=== PATIENT | male | born 1960 | race Caucasian/White ===

== ENCOUNTER 2016-11-25 09:59 | Inpatient (IN) | payer MEDICARE, OTHER ==
[~2016-11-25] VITALS: Ht 175.3 cm; Wt 70.6 kg
[2016-11-25 10:15] VITALS: BP 133/80; PULSE 97; RESP 16; TEMP 98.7; O2SAT 99
[2016-11-25 10:16] VITALS: BP 130/78; PULSE 97; RESP 16; TEMP 98.7; O2SAT 99
--- NOTE | 2016-11-25 10:27 | PD ---
HPI Chief Complaint: Psychiatric Symptoms Time Seen by Provider: 10:16 Travel History International Travel<30 days: No (unknown) Contact w/Intl Traveler<30days: No (unknown) Traveled to known affect area: No (unknown) History of Present Illness HPI This is a middle aged male with unknown medical history, is brought in under a Hebert act. The patient was apparently found on the side of the road and was not cooperative with please. Please were concerned that he had psychiatric issues. He is placed under a Hebert act. The patient was not cooperative with the police or paramedics. All he will tell me is that he's had old musculoskeletal fractures. He would not elaborate on whether he smoked, took drugs, drank alcohol. He was refusing to get in a gown. He was threatening to the police and to the staff when he arrived. PFSH Past Medical History ?: Unknown Social History Tobacco Use: No (unknown) Allergies-Medications (Allergen,Severity, Reaction): Coded Allergies: Darvocet-N 100 (Verified Allergy, Unknown, 11/25/16) Reported Meds & Prescriptions Reported Meds & Active Scripts Active Active Prescriptions or Reported Medications Unobtainable Review of Systems ROS Limitations: Uncooperative, Refused Except as stated in HPI: all other systems reviewed are Neg Physical Exam Narrative GENERAL: Well developed well-nourished male in no acute respiratory distress. SKIN: Focused skin assessment warm/dry. HEAD: Atraumatic. Normocephalic. EYES: Pupils equal and round. No scleral icterus. No injection or drainage. ENT: No nasal bleeding or discharge. Mucous membranes pink and moist. NECK: Trachea midline. Supple. CARDIOVASCULAR: Regular rate and rhythm. No murmur appreciated. RESPIRATORY: No accessory muscle use. Clear to auscultation. Breath sounds equal bilaterally. GASTROINTESTINAL: Abdomen soft, non-tender, nondistended. No pulsatile masses. MUSCULOSKELETAL: No obvious deformities. No clubbing. No cyanosis. No edema. NEUROLOGICAL: Awake and uncooperative. No obvious cranial nerve deficits. Motor grossly within normal limits. Normal speech but minimal secondary to his uncooperative state. Data Data Last Documented VS Vital Signs Date Time Temp Pulse Resp B/P Pulse Ox O2 Delivery O2 Flow Rate FiO2 11/25/16 10:16 98.7 97 16 130/78 99 11/25/16 10:15 Room Air Orders Complete Blood Count With Diff (11/25/16 10:16) Comprehensive Metabolic Panel (11/25/16 10:16) Psych Screen (11/25/16 10:16) Restraints Violent (11/25/16 10:16) Alcohol (Ethanol) (11/25/16 10:16) Permethrin 5% Cream (Elimite 5% Cream) (11/25/16 12:00) Admit To Inpatient Psych (11/25/16 ) Vital Signs (Adult) MALCOM.Q12H.E (11/25/16 14:40) Activity Oob Ad Fide (11/25/16 14:40) Lorazepam (Ativan) (11/25/16 14:45) Lorazepam Inj (Ativan Inj) (11/25/16 14:45) Lorazepam (Ativan) (11/25/16 14:45) Lorazepam Inj (Ativan Inj) (11/25/16 14:45) Acetaminophen (Tylenol) (11/25/16 14:45) Magnesium Hydroxide Liq (Milk Of Magnesi (11/25/16 14:45) Al-Mag Hy-Si 40-40-4 Mg/Ml Liq (Mag-Al P (11/25/16 14:45) Nicotine 21 Mg Patch.24 Hr (Habitrol 21 (11/25/16 14:45) Admit Order (Ed Use Only) (11/25/16 ) Labs Laboratory Tests Test 11/25/16 10:30 Sodium Level 143 MEQ/L Potassium Level 4.1 MEQ/L Chloride Level 107 MEQ/L Carbon Dioxide Level 27.4 MEQ/L Anion Gap 9 MEQ/L Blood Urea Nitrogen 21 MG/DL Creatinine 1.02 MG/DL Estimat Glomerular Filtration 63 ML/MIN Rate Random Glucose 141 MG/DL Calcium Level 9.5 MG/DL Total Bilirubin 1.0 MG/DL Aspartate Amino Transf 19 U/L (AST/SGOT) Alanine Aminotransferase 28 U/L (ALT/SGPT) Alkaline Phosphatase 69 U/L Total Protein 7.6 GM/DL Albumin 4.2 GM/DL Ethyl Alcohol Level LESS THAN 3 MG/DL White Blood Count 6.8 TH/MM3 Red Blood Count 4.22 MIL/MM3 Hemoglobin 13.6 GM/DL Hematocrit 40.4 % Mean Corpuscular Volume 95.8 FL Mean Corpuscular Hemoglobin 32.2 PG Mean Corpuscular Hemoglobin 33.6 % Concent Red Cell Distribution Width 12.8 % Platelet Count 193 TH/MM3 Mean Platelet Volume 8.9 FL Neutrophils (%) (Auto) 73.6 % Lymphocytes (%) (Auto) 16.6 % Monocytes (%) (Auto) 8.2 % Eosinophils (%) (Auto) 1.1 % Basophils (%) (Auto) 0.5 % Neutrophils # (Auto) 5.0 TH/MM3 Lymphocytes # (Auto) 1.1 TH/MM3 Monocytes # (Auto) 0.6 TH/MM3 Eosinophils # (Auto) 0.1 TH/MM3 Basophils # (Auto) 0.0 TH/MM3 CBC Comment DIFF FINAL Differential Comment MDM Medical Decision Making Medical Screen Exam Complete: Yes Emergency Medical Condition: Yes Differential Diagnosis Acute psychosis versus substance induced mood disorder versus uncooperative Narrative Course This is a middle-age man who is brought in under a Hebert act. The patient was initially refusing to discuss any of his history with me when he arrived. He is now somewhat more verbal however has tangential thoughts. He keeps remarking about [place] and [place] architecture. The patient would tell me his first name is Ion. When I asked if he would tell me his last name, he refused. His gown was coming down off his right shoulder and when I went to try to assist put it back up, he stated he would bert me. He is still very confrontational. He'll be medically cleared for psychiatric admission. He does have questionable scabies lesions to his feet. I have ordered permetherin cream for it. Diagnosis Primary Impression: Unspecified psychosis Additional Impressions: questionable scabies to the feet medically clear Scripts Unable to Obtain Active Prescriptions or Reported Meds Angel Kuhn MD Nov 25, 2016 10:27
[2016-11-25 10:50] LABS: BASOPHIL % 0.5 % (0.0-2.0); EOSINOPHIL # 0.1 TH/MM3 (0-0.4); EOSINOPHIL % 1.1 % (0.0-4.0); HEMATOCRIT 40.4 % (39.0-51.0); HEMO FLAGS DIFF FINAL; LYMPH % 16.6 % (9.0-44.0); LYMPHOCYTE # 1.1 TH/MM3 (1.0-4.8); MEAN CELL VOLUME 95.8 FL (80.0-100.0); MEAN CORPUSCULAR HEMOGLOBIN 32.2 PG (27.0-34.0); MEAN CORPUSCULAR HGB CONC 33.6 % (32.0-36.0); MONO % 8.2 % (0.0-8.0); NEUT % 73.6 % (16.0-70.0); PLATELET COUNT 193 TH/MM3 (150-450); RED BLOOD COUNT 4.22 MIL/MM3 (4.50-5.90); RED CELL DISTRIBUTION WIDTH 12.8 % (11.6-17.2); WHITE BLOOD COUNT 6.8 TH/MM3 (4.0-11.0)
[2016-11-25 11:08] LABS: ANION GAP 9 MEQ/L (5-15); AST (GOT) 19 U/L (15-37); BICARBONATE 27.4 MEQ/L (21.0-32.0); BLOOD UREA NITROGEN 21 MG/DL (7-18); CHLORIDE 107 MEQ/L (98-107); GLOMERULAR FILTRATION RATE 63 ML/MIN (>89); POTASSIUM 4.1 MEQ/L (3.5-5.1); SODIUM (NA) 143 MEQ/L (136-145)
[2016-11-25 11:10] LABS: ALKALINE PHOSPHATASE 69 U/L (45-117); ALT (GPT) 28 U/L (12-78)
[2016-11-25] MEDS ORDERED: PERMETHRIN 5% CREAM 60 GM TOPICAL ONE (12:00)
[2016-11-25] MEDS ORDERED: LORazepam 0.5 MG TAB PO PRN (14:45)
[2016-11-25] MEDS ORDERED: LORazepam 2 MG/ML VIAL IM PRN ×2 (14:45)
[2016-11-25] MEDS ORDERED: MAGNESIUM HYDROXIDE SUSP 30 ML CUP PO PRN (14:45)
[2016-11-25] MEDS ORDERED: ALUMINUM/MAGNESIUM/SIMETH 30 ML CUP PO PRN (14:45)
[2016-11-25] MEDS: NICOTINE 21 MG/24 HR PATCH T-DERMAL SCH (14:45)
[2016-11-25 15:00] VITALS: BP 126/74; PULSE 76; RESP 18; O2SAT 99
[2016-11-25] MEDS ORDERED: OLANZapine IM 10 MG VIAL IM ONE ×2 (16:36→17:00)
[2016-11-25] MEDS: LORazepam 1 MG TAB PO PRN (16:47)
[2016-11-25] MEDS ORDERED: ATROPINE SULFATE 1 MG/ML VIAL ONE (17:27)
[2016-11-25 18:16] VITALS: BP 104/54; PULSE 69; RESP 18; TEMP 98.6; O2SAT 92
[2016-11-25] MEDS: REMOVE OLD NICODERM (NICOTINE) PATCH T-DERMAL SCH (21:00)
[2016-11-26] VITALS: BP 92/61; PULSE 62; RESP 16; TEMP 97.4; O2SAT 98
[2016-11-26 06:04] VITALS: BP 88/53; PULSE 72; RESP 18; O2SAT 100
[2016-11-26] MEDS: NICOTINE 21 MG/24 HR PATCH T-DERMAL SCH (09:00)
--- NOTE | 2016-11-26 12:54 | HHI.HP ---
Provisional Diagnosis Admission Date Nov 25, 2016 at 14:43 Burna I. 1. Schizoaffective disorder, other type 2. History of alcohol use disorder Burna II. Deferred Burna V. GAF is 30 presently Certification of Person's Competence To Provide Express and Informed Consent I have personally examined Rohith Page , a person being served at [facility] on, Nov 26, 2016 12:54. Express and informed consent means consent voluntarily given in writing, by a competent person, after sufficient explanation and disclosure of the subject matter involved to enable the person to make a knowing and willful decision without any element of force, fraud, deceit, duress, or other form of constraint or coercion. This person is 18 years of age or older, is not now known to be incompetent to consent to treatment with a guardian advocate, and does not have a health care surrogate or proxy currently making medical treatment decisions. I have found this person to be one of the following: [x] Competent to provide express and informed consent, as defined above, for voluntary admission to this facility and is competent to provide express and informed consent for treatment. He/she has the consistent capacity to make well reasoned, willful, and knowing decisions concerning his or her medical or mental health treatment. The person fully and consistently understands the purpose of the admission for examination/placement and is fully capable of personally exercising all rights assured under [place] Incompetent to provide express and informed consent to voluntary admission, and this is incompetent to provide express and informed consent to treatment. The person must be transferred to involuntary status and a petition for a guardian advocate filed with the Circuit Court. [] Refusing to provide express and informed consent to voluntary admission but is competent to provide express and informed consent for treatment. The person must be discharged or transferred to involuntary status. Form shall be completed within 24 hours of a person's arrival at the receiving facility and filed in the clinical record of each person: 1. Admitted on a voluntary basis 2. Permitted to provide express and informed consent to his/her own treatment 3. Allowed to transfer from involuntary to voluntary status 4. Prior to permitting a person to consent to his or her own treatment after having been previously found incompetent to consent to treatment. History of Present Illness Capacity: Has Capacity HPI Patient is an [id number] male presenting as a Rohith Tompkins under a Hebert Act, gives his name as Ion Jameson 62. Reviewing the notes, it appears that he was quite agitated on initial presentation and was medicated with Zyprexa 10 mg IM in the ED. Reviewing the electronic medical record for Mr. Jameson, it appears the patient was admitted about a year ago under Dr. Russell for a short stay for what turned out to be an alcohol-induced disorder at that time, although Dr. Russell's last note does give a diagnosis of schizoaffective disorder. I have placed a call over to [facility] and spoken with medical records there. Patient was apparently treated at the end of October of this year at [facility] and the diagnosis at that time was schizoaffective disorder. Medical records is faxing me the full report for review. Patient seen and examined with counselor and nurse. Patient seems much more lucid today than he apparently was yesterday. He complains of pain in his jaw, neck and back related to being detained by the police. 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 He is not a terribly forthcoming historian. He does report "everyday things make me anxious." He denies AVH. When asked if he feels like people are working against him, he replies, "I'm sure they do." No other gia delusional material. Denies SI/HI at this time. Affect somewhat restricted and dysphoric. No hypomanic/manic symptoms noted. Demanding and irritable per RN. Remainder of the psychiatric ROS is negative. Past psychiatric history: Patient denies a history of psychiatric diagnosis although he does note that he has been treated at [facility] in the past. He reports that his most recent psychiatric admission was here at [facility]. He denies any history of suicide attempts. Family history: Patient replies that he "probably" has a family history of mental illness. Chemical dependency history: Patient reports that he has significantly curtailed his alcohol consumption although he declines to quantify exactly how much or overwhelmed. He has cut back. He denies any other substance use. His alcohol level was undetectable on presentation here and he declined to provide a urine sample for urine toxicology. Social history: The patient reports that he is trying to get back to [facility] where he plans to stay with a friend named Zhen. He is single with no children. He is college educated reportedly. He does not work and collects disability but says that was his payee and has been holding his checks. Denies any history of violent crime. Denies any active legal issues. Denies any history. Denies any access to guns or firearms. Review of Systems ROS Limitations: Poor Historian Except as stated in HPI: all other systems reviewed are Neg Past Psych History Psychological trauma history none reported Violence risk - others (6 mos) Indeterminate but suspect lower imminent risk. Denies HI. Violence risk - self (6 mos) Lower imminent risk. Denies SI. Substance Abuse History Drugs/Alcohol past 12 months See above Past Family Social History Coded Allergies: Darvocet-N 100 (Verified Allergy, Unknown, 11/25/16) Past Medical History See electronic medical record Unable to Obtain Active Prescriptions or Reported Meds Current Medications Medications (Trade) Dose Ordered Sig/Luke Route Start Time Stop Time Status Last Admin (Ativan) 1 mg Q6H PRN PO 11/25/16 14:45 (Ativan Inj) 1 mg Q6H PRN IM 11/25/16 14:45 11/25/16 16:58 (Tylenol) 650 mg Q4H PRN PO 11/25/16 14:45 (Milk Of Magnesia Liq) 30 ml DAILY PRN PO 11/25/16 14:45 (Mag-Al Plus Susp Liq) 30 ml Q6H PRN PO 11/25/16 14:45 (Habitrol 21 Mg Patch.24 Hr) 1 patch DAILY T-DERMAL 11/25/16 14:45 Miscellaneous Information 1 HS T-DERMAL 11/25/16 21:00 Patient's Strengths (min. 2) In a monitored setting. Verbally fluent. Physical Exam Physical exam completed by ED provider. On my examination today, patient appears to be in no acute physical distress. No abnormal motor movements noted. No signs of withdrawal noted. Labs and vital signs reviewed: Vital Signs Vital Signs Date Time Temp Pulse Resp B/P Pulse Ox O2 Delivery O2 Flow Rate FiO2 11/26/16 06:04 72 18 88/53 100 11/26/16 00:00 97.4 11/25/16 15:00 Room Air Lab Results Item Value Date Time White Blood Count 6.8 TH/MM3 11/25/16 1030 Hemoglobin 13.6 GM/DL 11/25/16 1030 Platelet Count 193 TH/MM3 11/25/16 1030 Sodium Level 143 MEQ/L 11/25/16 1030 Potassium Level 4.1 MEQ/L 11/25/16 1030 Chloride Level 107 MEQ/L 11/25/16 1030 Carbon Dioxide Level 27.4 MEQ/L 11/25/16 1030 Blood Urea Nitrogen 21 MG/DL H 11/25/16 1030 Creatinine 1.02 MG/DL 11/25/16 1030 Aspartate Amino Transf (AST/SGOT) 19 U/L 11/25/16 1030 Alanine Aminotransferase (ALT/SGPT) 28 U/L 11/25/16 1030 Alkaline Phosphatase 69 U/L 11/25/16 1030 Ethyl Alcohol Level LESS THAN 3 MG/DL 11/25/16 1030 Mental Status Examination Patient is in hospital gown. He is fairly disheveled. He is awake and alert and oriented 3. No evidence of delirium. No abnormal motor movements noted. Speech is within normal limits for rate, tone and volume if a little bit gruff. Language and fund of knowledge seem average. Focus and concentration intact. Memory grossly intact on clinical exam. Mood and affect are somewhat restricted and dysphoric. Thought process linear. No loosening of associations. Possibly some paranoia but no other delusional material. No audiovisual hallucinations. Denies suicidal or homicidal ideation. Insight and judgment are unclear. Assessment & Plan Problem List: (1) Schizoaffective disorder ICD Code: F25.9 Assessment & Plan This is an older middle-aged male giving his name as Ion Jameson who presented under a Hebert act as a Rohith Tompkins. Patient apparently has a history of schizoaffective disorder and is presently mildly paranoid. Patient declined to provide UTox in ED, and it is possible that he was intoxicated by a substance prior to arrival. He does endorse a history of EtOH, but his alcohol level was undetectable on presentation here. There are no stigmata of withdrawal at this time, nor is he presently delirious. I will plan to admit patient psychiatrically for observation. Admit inpatient. Voluntary status. Check BMP, lipid panel, HgbA1c in morning. Consult to hospitalist for physical complaints. Abilify 10mg daily for schizoaffective d/o. CIWA with Ativan. Thiamine/folate. Seizure/fall prec. Ativan as needed for anxiety, Cogentin as needed for EPS, Benadryl as needed for sleep. Vitals every shift. Counselor to see and obtain collateral. Disposition planning. Estimated length of stay: 3-5 days. Discharge Planning Pending stabilization Request HC Surrog/Guard Advoc?: No Problem Qualifiers (1) Schizoaffective disorder: Qualified Code: F25.8 - Other schizoaffective disorders Ion Chow MD Nov 26, 2016 12:54
[2016-11-26] MEDS ORDERED: PERMETHRIN 1% LOTION 60 ML BTL TOPICAL ONE (13:00)
[2016-11-26] MEDS ORDERED: FLUMAZENIL 0.5 MG/5 ML VIAL IV PUSH PRN (14:00)
[2016-11-26] MEDS ORDERED: BENZTROPINE MESYLATE 1 MG TAB PO PRN (14:00)
[2016-11-26] MEDS ORDERED: LORazepam 2 MG/ML VIAL IM PRN ×4 (14:00)
[2016-11-26] MEDS ORDERED: LORazepam 2 MG TAB PO PRN (14:00)
[2016-11-26] MEDS ORDERED: LORazepam 1 MG TAB PO PRN (14:00)
[2016-11-26] MEDS ORDERED: BENZTROPINE MESYLATE 2 MG/2 ML VIAL IM PRN (14:00)
[2016-11-26] MEDS: LORazepam 1 MG TAB PO PRN (14:16)
[2016-11-26] MEDS ORDERED: PERMETHRIN 5% CREAM 60 GM TOPICAL ONE (15:00)
--- NOTE | 2016-11-26 19:12 | PD.CONS ---
HPI Service [facility] Consult Requested By Psychiatric team Reason for Consult Complains of general back and neck pain reportedly from being detained by [facility] for Hebert act Primary Care Physician Shady Martin MD Diagnoses: History of Present Illness Written by Saima Caldwell, acting as scribe for Dr. Tinsley on 11/26/16 at 19:05. This a patient brought in as a Rohith Tompkins under Hebert act by [facility]. Patient reports 6 days ago as he is being discharged from [facility], "broke his neck," and since that point he has been having neck pain. Patient denies back pain or jaw pain at this time. Patient also complains of burning/itching to left ankle area unable to elaborate on how long this has been present. Of note patient is a unreliable and poor historian. Patient appears to be in no acute distress and denies chest pain nausea vomiting diarrhea constipation fevers or chills Review of Systems ROS Limitations: Poor Historian Except as stated in HPI: all other systems reviewed are Neg Past Family Social History Allergies: Coded Allergies: Darvocet-N 100 (Verified Allergy, Unknown, 11/25/16) Past Medical History Denies prior medical history Past Surgical History Reports he's had some dental work but denies prior surgical history Reported Medications Denies taking medications on a daily basis Active Ordered Medications Current Medications Medications (Trade) Dose Ordered Sig/Luke Route Start Time Stop Time Status Last Admin (Ativan) 1 mg Q6H PRN PO 11/25/16 14:45 11/26/16 14:16 (Ativan Inj) 1 mg Q6H PRN IM 11/25/16 14:45 11/25/16 16:58 (Tylenol) 650 mg Q4H PRN PO 11/25/16 14:45 (Milk Of Magnesia Liq) 30 ml DAILY PRN PO 11/25/16 14:45 (Mag-Al Plus Susp Liq) 30 ml Q6H PRN PO 11/25/16 14:45 (Habitrol 21 Mg Patch.24 Hr) 1 patch DAILY T-DERMAL 11/25/16 14:45 Miscellaneous Information 1 HS T-DERMAL 11/25/16 21:00 (Abilify) 10 mg DAILY PO 11/27/16 09:00 (Romazicon Inj) 0.2 mg Q1M PRN IV PUSH 11/26/16 14:00 (Ativan) 1 mg Q4H PRN PO 11/26/16 14:00 (Ativan Inj) 1 mg Q4H PRN IM 11/26/16 14:00 (Ativan) 2 mg Q2H PRN PO 11/26/16 14:00 (Ativan Inj) 2 mg Q2H PRN IM 11/26/16 14:00 (Ativan Inj) 2 mg Q1H PRN IM 11/26/16 14:00 (Ativan Inj) 2 mg Q15M PRN IM 11/26/16 14:00 (Vitamin B1) 100 mg DAILY PO 11/27/16 09:00 (Folate) 1 mg DAILY PO 11/27/16 09:00 (Cogentin) 1 mg Q12HR PRN PO 11/26/16 14:00 (Cogentin Inj) 1 mg Q12HR PRN IM 11/26/16 14:00 (Benadryl) 50 mg HS PRN PO 11/26/16 14:00 (Motrin) 800 mg Q8H PRN PO 11/26/16 17:15 (Benadryl 2% Cream) 1 applic TID PRN TOPICAL 11/26/16 17:30 Family History Denies family medical history Social History Denies tobacco use EtOH use or illicit drug use Physical Exam Vital Signs Vital Signs Date Time Temp Pulse Resp B/P Pulse Ox O2 Delivery O2 Flow Rate FiO2 11/26/16 06:04 72 18 88/53 100 11/26/16 00:00 97.4 62 16 92/61 98 Physical Exam GENERAL: This is a well-nourished, well-developed patient, in no apparent distress. SKIN: Scattered pustulars left ankle HEAD: Atraumatic. Normocephalic. No temporal or scalp tenderness. EYES: Extraocular motions intact. No scleral icterus. No injection or drainage. NECK: Trachea midline. No JVD or lymphadenopathy. Supple, nontender, no meningeal signs. Full range of motion. CARDIOVASCULAR: Regular rate and rhythm without murmurs, gallops, or rubs. RESPIRATORY: Clear to auscultation. Breath sounds equal bilaterally. No wheezes , rales, or rhonchi. GASTROINTESTINAL: Abdomen soft, non-tender, nondistended. No hepato-splenomegaly , or palpable masses. No guarding. MUSCULOSKELETAL: Extremities without clubbing, cyanosis, or edema. No joint tenderness, effusion, or edema noted. No calf tenderness. Negative Homans sign bilaterally. NEUROLOGICAL: Awake and alert. No focal deficits appreciated. Motor and sensory grossly within normal limits. Five out of 5 muscle strength in all muscle groups. Normal speech. Result Diagram: 11/25/16 1030 11/25/16 1030 Assessment and Plan Assessment and Plan This a patient brought in as a Rohith Tompkins under Hebert act by placed department. Patient reports 6 days ago as he is being discharged from [facility], "broke his neck," and since that point he has been having neck pain. Patient denies back pain or jaw pain at this time. Patient also complains of burning/itching to left ankle area unable to elaborate on how long this has been present. Of note patient is a unreliable and poor historian. Patient appears to be in no acute distress and denies chest pain nausea vomiting diarrhea constipation fevers or chills. Reported neck pain- appears musculoskeletal in nature reproducible with palpation patient has full range of motion is ambulatory has no focal deficits paresthesias or weakness Ibuprofen as needed for pain Pustular rash left ankle appears to be insect bites does not appear consistent with scabies DC permethrin treatment and DC isolation precautions Topical diphenhydramine as needed for itching Psychiatric disorder management per psychiatric team Discussed with patient and nursing staff Patient appears medically stable at this point no further treatment recommendations. The patient's condition changes or further assistance is needed please reconsult This note was transcribed by scribe [Saima Caldwell]. I, Dr. Della Tinsley personally performed the history, physical exam, and medical decision making; and confirmed the accuracy of the information in the transcribed note. Authenticated by Dr. Della Tinsley on 11/26/16 at 1915. Saima Caldwell Nov 26, 2016 19:12 Della Tinsley MD Nov 26, 2016 19:29
[2016-11-26] MEDS: REMOVE OLD NICODERM (NICOTINE) PATCH T-DERMAL SCH (21:00)
[2016-11-26] MEDS: IBUPROFEN 800 MG TAB PO PRN (21:26)
[2016-11-27] MEDS: FOLIC ACID 1 MG TAB PO SCH (09:00)
[2016-11-27] MEDS: THIAMINE HCL 100 MG TAB PO SCH (09:00)
[2016-11-27] MEDS: NICOTINE 21 MG/24 HR PATCH T-DERMAL SCH (09:00)
[2016-11-27] MEDS: ARIPiprazole 5 MG TAB PO SCH (09:25)
[2016-11-27] MEDS: LORazepam 1 MG TAB PO PRN (12:07)
--- NOTE | 2016-11-27 12:09 | HHI.PYPN ---
Subjective Remarks Patient seen and examined with counselor and nurse. Chart reviewed. Case discussed with nursing staff who reports that the patient remains somewhat oppositional and refusing of care. It appears the patient refused laboratories this morning. I endeavored to examine the patient today on the unit, and he walked away from me. Staff tried to call the patient in for interview, but he refused to comply. Patient appears dysphoric and internally preoccupied. No evident side effects from medications. No physical complaints. Review of Systems ROS Limitations: Psychotic, Poor Historian Except as stated in HPI: all other systems reviewed are Neg Objective Alert: Yes [place]: Person (unable to assess) Mood: Other (unable to assess) Affect: Restricted (dysphoric) Memory Intact: Comment (Not assessed) Hallucinations: Other (Appears int stim) Delusions: Yes Delusion Type: Paranoid Suicidal: Ideation (No SI voiced) Homicidal: Ideation (No HI voiced) Insight/Judgment Poor Remarks No motor abnormalities noted. No signs of GABAergic withdrawal. Electively mute. Grooming and hygiene fair. Labs Labs reviewed. Pt refused labs this am. Vitals/IOs Vital Signs Date Time Temp Pulse Resp B/P Pulse Ox O2 Delivery O2 Flow Rate FiO2 11/26/16 06:04 72 18 88/53 100 11/26/16 00:00 97.4 11/25/16 15:00 Room Air Assessment & Plan Problem List: (1) Schizoaffective disorder ICD Code: F25.9 Assessment & Plan Continue Abilify as ordered. Continue to monitor on the high acuity unit. I remain concerned about significant functional impairment as a consequence of decompensated psychosis in this patient. Patient is declining to sign in voluntarily. I will initiate a petition for involuntary psychiatric hospitalization and consult for second opinion. I will request a healthcare surrogate and guardian advocate. Continue other medications and care as ordered. Justification for Cont. Inpt. Impairment in reality construction. Concern for impairment in self-care. High risk for decompensation in a less restrictive environment. Discharge Planning Pending stabilization Request HC Surrog/Guard Advoc?: No Problem Qualifiers (1) Schizoaffective disorder: Qualified Code: F25.8 - Other schizoaffective disorders Ion Chow MD Nov 27, 2016 12:08
[2016-11-27] MEDS: diphenhydrAMINE HCL 2%/ZINC ACETATE 0.1% CREAM 30 APPLIC/30 GM TUBE TOPICAL PRN (14:48)
[2016-11-27] MEDS: IBUPROFEN 800 MG TAB PO PRN (17:05)
[2016-11-27 18:12] VITALS: BP 107/61; PULSE 69; RESP 18; TEMP 98.5; O2SAT 97
[2016-11-27] MEDS: REMOVE OLD NICODERM (NICOTINE) PATCH T-DERMAL SCH (20:33)
[2016-11-28 06:01] VITALS: BP 124/61; PULSE 96; RESP 18; TEMP 98.3
[2016-11-28] MEDS: ARIPiprazole 5 MG TAB PO SCH (08:33)
[2016-11-28] MEDS: NICOTINE 21 MG/24 HR PATCH T-DERMAL SCH (08:33)
[2016-11-28] MEDS: FOLIC ACID 1 MG TAB PO SCH (08:33)
[2016-11-28] MEDS: THIAMINE HCL 100 MG TAB PO SCH (08:33)
[2016-11-28] MEDS: LORazepam 1 MG TAB PO PRN ×2 (11:51→19:24)
[2016-11-28] MEDS: ACETAMINOPHEN 325 MG TAB PO PRN (13:00)
--- NOTE | 2016-11-28 13:18 | HHI.PYPN ---
Subjective Remarks Patient seen and examined with nurse. Chart reviewed. Case discussed with nursing staff who reports patient remains bizarre and paranoid and refused laboratories this morning. Nurse relates an episode where the electronic maintenance supervisor was cleaning the bathroom and had cleaning chemicals in the toilet. Patient reportedly pushed his way past the electronic maintenance supervisor and flushed the toilet. Also asking nursing staff if anorexia is contagious. On my exam, patient is quite discharge focused. Says he wants to be among "my people." Denies SI/HI. Denies AVH but appears int stim. No side effects from medications. No physical complaints. Review of Systems ROS Limitations: Psychotic, Poor Historian Except as stated in HPI: all other systems reviewed are Neg Objective Alert: Yes [place]: Person, Place Mood: Other (dysphoric) Affect: Restricted Memory Intact: Comment (Not assessed) Hallucinations: Auditory (Int stim but denies AVH) Delusions: Yes Delusion Type: Paranoid (bizarre) Suicidal: Ideation (Denies SI) Homicidal: Ideation (Denies HI) Insight/Judgment Poor Remarks No motor abnormalities noted. No signs of withdrawal noted. Grooming and hygiene fair. Thought process perseverative on discharge. Labs Patient refused labs Vitals/IOs Vital Signs Date Time Temp Pulse Resp B/P Pulse Ox O2 Delivery O2 Flow Rate FiO2 11/28/16 06:01 98.3 96 18 124/61 11/27/16 18:12 97 11/25/16 15:00 Room Air Assessment & Plan Problem List: (1) Schizoaffective disorder ICD Code: F25.9 Assessment & Plan Titrate Abilify to 15 mg daily to target psychosis. Continue to monitor on the inpatient unit. Continue other medications and care as ordered. Justification for Cont. Inpt. Medication changes in process. Impairment in reality construction. High risk for decompensation in less restrictive environment. Discharge Planning Pending psychiatric stabilization. Request HC Surrog/Guard Advoc?: No Problem Qualifiers (1) Schizoaffective disorder: Qualified Code: F25.8 - Other schizoaffective disorders Ion Chow MD Nov 28, 2016 13:18
--- NOTE | 2016-11-28 15:42 | PD.PSY.CON ---
Provisional Diagnosis Admission Date Nov 25, 2016 at 14:43 [place] I. 1. Schizoaffective disorder, other type 2. History of alcohol use disorder [place]coe II. Deferred [place] V. GAF is 30 presently History of Present Illness Service Psychiatry Consult Requested By Dr. chow Reason for Consult Second opinion [facility] Primary Care Physician Shady Martin MD HPI Patient is an [id number] male presenting as a Rohith Tompkins under a [employer] Act, gives his name as Ion Jameson 62. Reviewing the notes, it appears that he was quite agitated on initial presentation and was medicated with Zyprexa 10 mg IM in the ED. Reviewing the electronic medical record for Mr. Jameson, it appears the patient was admitted about a year ago under Dr. Russell for a short stay for what turned out to be an alcohol-induced disorder at that time, although Dr. Russell's last note does give a diagnosis of schizoaffective disorder. I have placed a call over to [facility] and spoken with medical records there. Patient was apparently treated at the end of October of this year at [facility] and the diagnosis at that time was schizoaffective disorder. Medical records is faxing me the full report for review. Patient seen and examined with counselor and nurse. Patient seems much more lucid today than he apparently was yesterday. He complains of pain in his jaw, neck and back related to being detained by the police. 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 He is not a terribly forthcoming historian. He does report "everyday things make me anxious." He denies AVH. When asked if he feels like people are working against him, he replies, "I'm sure they do." No other gia delusional material. Denies SI/HI at this time. Affect somewhat restricted and dysphoric. No hypomanic/manic symptoms noted. Demanding and irritable per RN. Remainder of the psychiatric ROS is negative. Past psychiatric history: Patient denies a history of psychiatric diagnosis although he does note that he has been treated at [facility] in the past. He reports that his most recent psychiatric admission was here at [facility]. He denies any history of suicide attempts. Family history: Patient replies that he "probably" has a family history of mental illness. Chemical dependency history: Patient reports that he has significantly curtailed his alcohol consumption although he declines to quantify exactly how much or overwhelmed. He has cut back. He denies any other substance use. His alcohol level was undetectable on presentation here and he declined to provide a urine sample for urine toxicology. Social history: The patient reports that he is trying to get back to [facility] where he plans to stay with a friend named Zhen. He is single with no children. He is college educated reportedly. He does not work and collects disability but says that was his payee and has been holding his checks. Denies any history of violent crime. Denies any active legal issues. Denies any history. Denies any access to guns or firearms. 11/28/16 Above note dictated by Dr. Chow reviewed and agreed with. Patient seen by me in day room with nurse Gilbert. Patient continues quite vigilant paranoid suspicious. Showing little insight into his disease. Denying any need for medication at this time. Dr. Chow @first opinion petition supporting Hebert act. I agree. Patient meets criteria for involuntary psychiatric hospitalization under the Hebert act. Thus I will cosign second opinion petition supporting [employer] act Past Family Social History Coded Allergies: Darvocet-N 100 (Verified Allergy, Unknown, 11/25/16) Unable to Obtain Active Prescriptions or Reported Meds Current Medications Medications (Trade) Dose Ordered Sig/Luke Route Start Time Stop Time Status Last Admin (Ativan) 1 mg Q6H PRN PO 11/25/16 14:45 11/28/16 11:51 (Ativan Inj) 1 mg Q6H PRN IM 11/25/16 14:45 11/25/16 16:58 (Tylenol) 650 mg Q4H PRN PO 11/25/16 14:45 11/28/16 13:00 (Milk Of Magnesia Liq) 30 ml DAILY PRN PO 11/25/16 14:45 (Mag-Al Plus Susp Liq) 30 ml Q6H PRN PO 11/25/16 14:45 (Habitrol 21 Mg Patch.24 Hr) 1 patch DAILY T-DERMAL 11/25/16 14:45 11/28/16 08:33 Miscellaneous Information 1 HS T-DERMAL 11/25/16 21:00 (Vitamin B1) 100 mg DAILY PO 11/27/16 09:00 11/28/16 08:33 (Folate) 1 mg DAILY PO 11/27/16 09:00 11/28/16 08:33 (Cogentin) 1 mg Q12HR PRN PO 11/26/16 14:00 (Cogentin Inj) 1 mg Q12HR PRN IM 11/26/16 14:00 (Benadryl) 50 mg HS PRN PO 11/26/16 14:00 (Motrin) 800 mg Q8H PRN PO 11/26/16 17:15 11/27/16 17:05 (Benadryl 2% Cream) 1 applic TID PRN TOPICAL 11/26/16 17:30 11/27/16 14:48 (Abilify) 15 mg DAILY PO 11/29/16 09:00 UNV Patient's Strengths (min. 2) In a monitored setting. Verbally fluent. Physical Exam Vital Signs Vital Signs Date Time Temp Pulse Resp B/P Pulse Ox O2 Delivery O2 Flow Rate FiO2 11/28/16 06:01 98.3 96 18 124/61 11/27/16 18:12 97 11/25/16 15:00 Room Air Mental Status Examination Alert somewhat irritable suspicious disheveled white male Appearance Somewhat disheveled Speech: Rapid, Tangential Orientation: Person, Place Memory: Unremarkable Thought Process: Loose Association Thought Content: Paranoid Language Poor Fund of Knowledge Poor Hallucination Type: None (vaguely denies been at times appears to be responding to internal stimuli) Attention and Concentration: Other (poor) Suicidal Ideation: No Previous Suicide Attempts: No Homicidal Ideation: No (deny) Previous Homicide Attempts: No Insight: Poor Judgment: Poor Affect: Other (slight increase range intensity) Mood: Irritable Motor Activity: Normal gait Assessment & Plan Problem List: (1) Schizoaffective disorder ICD Code: F25.9 Assessment & Plan Estimated LOS: days Request HC Surrog/Guard Advoc?: No Problem Qualifiers (1) Schizoaffective disorder: Qualified Code: F25.8 - Other schizoaffective disorders Rohith Hernandez MD Nov 28, 2016 15:42
[2016-11-28] MEDS: REMOVE OLD NICODERM (NICOTINE) PATCH T-DERMAL SCH (20:22)
[2016-11-28] MEDS: IBUPROFEN 800 MG TAB PO PRN (20:24)
[2016-11-29] MEDS: NICOTINE 21 MG/24 HR PATCH T-DERMAL SCH (08:20)
[2016-11-29] MEDS: FOLIC ACID 1 MG TAB PO SCH (08:21)
[2016-11-29] MEDS: THIAMINE HCL 100 MG TAB PO SCH (08:22)
[2016-11-29] MEDS ORDERED: ARIPiprazole 15 MG TAB PO SCH (09:00)
--- NOTE | 2016-11-29 09:31 | HHI.PYPN ---
Subjective Remarks Patient seen and examined with nurse and counselor. Chart reviewed. Case discussed with nurse. On my examination, patient is initially quite standoffish and refuses interview. He is paranoid and internally stimulated. He remains irritable. After initially refusing interview, he then demands discharge. Finally, he just walks away, concluding the interview. No side effects from meds. No physical complaints. Review of Systems ROS Limitations: Psychotic, Poor Historian Except as stated in HPI: all other systems reviewed are Neg Objective Alert: Yes [place]: Person, Place Mood: Other (irritable, dysphoric) Affect: Restricted Memory Intact: Comment (Not assessed) Hallucinations: Auditory (remains int stim) Delusions: Yes Delusion Type: Paranoid Suicidal: Ideation (No SI) Homicidal: Ideation (No HI) Insight/Judgment Poor Remarks No motor abnormalities noted. Grooming and hygiene fair. Labs Patient refusing labs Vitals/IOs Vital Signs Date Time Temp Pulse Resp B/P Pulse Ox O2 Delivery O2 Flow Rate FiO2 11/28/16 20:00 11/28/16 06:01 98.3 96 18 11/27/16 18:12 97 11/25/16 15:00 Room Air Assessment & Plan Problem List: (1) Schizoaffective disorder ICD Code: F25.9 Assessment & Plan Patient is not yet responding adequately to antipsychotic treatment. Titrate Abilify through the weekend to target psychosis. Continue to monitor on the high acuity unit. Continue other medications and care as ordered. Justification for Cont. Inpt. Medication changes in process. High risk for decompensation in less restrictive environment. Discharge Planning Pending psychiatric stabilization. Request HC Surrog/Guard Advoc?: No Problem Qualifiers (1) Schizoaffective disorder: Qualified Code: F25.8 - Other schizoaffective disorders Ion Chow MD Nov 29, 2016 09:31
[2016-11-29] MEDS: LORazepam 1 MG TAB PO PRN ×3 (10:00→21:35)
[2016-11-29] MEDS: REMOVE OLD NICODERM (NICOTINE) PATCH T-DERMAL SCH (20:44)
[2016-11-29] MEDS: diphenhydrAMINE HCL 50 MG CAP PO PRN (21:35)
[2016-11-30 05:59] VITALS: BP 111/57; PULSE 82; RESP 16; TEMP 98.3; O2SAT 96
[2016-11-30] MEDS: NICOTINE 21 MG/24 HR PATCH T-DERMAL SCH ×2 (07:44→09:23)
[2016-11-30] MEDS: FOLIC ACID 1 MG TAB PO SCH (07:45)
[2016-11-30] MEDS: THIAMINE HCL 100 MG TAB PO SCH (07:45)
[2016-11-30] MEDS: ARIPiprazole 15 MG TAB PO SCH (07:45)
[2016-11-30] MEDS: LORazepam 1 MG TAB PO PRN ×3 (07:45→19:34)
--- NOTE | 2016-11-30 14:11 | HHI.PYPN ---
Subjective Remarks Patient was seen and case discussed with nursing. Patient remains acutely psychotic. She told nursing this morning that he thought people or go to harvest his organs. During my interview he is concerned that people are spying on him. He stops [place] and pretends to write things on his hand. He refuse lab work this morning thinking it would give him HIV. Says the hallucinations are gone Objective Alert: Yes [place]: Person, Place Mood: Other (irritable, dysphoric) Affect: Restricted Memory Intact: Comment (Not assessed) Hallucinations: Auditory (remains int stim) Delusions: Yes Delusion Type: Paranoid (various paranoid delusions) Suicidal: Ideation (No SI) Homicidal: Ideation (No HI) Insight/Judgment Poor Vitals/IOs Vital Signs Date Time Temp Pulse Resp B/P Pulse Ox O2 Delivery O2 Flow Rate FiO2 11/30/16 05:59 98.3 82 16 111/57 96 Assessment & Plan Problem List: (1) Schizoaffective disorder ICD Code: F25.9 Assessment & Plan Continue current treatment plan Justification for Cont. Inpt. Patient will decompensate in a less restrictive setting Request HC Surrog/Guard Advoc?: No Problem Qualifiers (1) Schizoaffective disorder: Qualified Code: F25.8 - Other schizoaffective disorders Andrew Hernadez DO Nov 30, 2016 14:11
[2016-11-30] MEDS: IBUPROFEN 800 MG TAB PO PRN (15:50)
[2016-11-30 18:08] VITALS: BP 104/61; PULSE 80; RESP 17; TEMP 98.7; O2SAT 97
[2016-11-30] MEDS: diphenhydrAMINE HCL 50 MG CAP PO PRN (20:13)
[2016-11-30] MEDS: ACETAMINOPHEN 325 MG TAB PO PRN (20:14)
[2016-11-30] MEDS: REMOVE OLD NICODERM (NICOTINE) PATCH T-DERMAL SCH (20:15)
[2016-12-01] MEDS: IBUPROFEN 800 MG TAB PO PRN ×2 (04:31→15:36)
[2016-12-01] MEDS: LORazepam 1 MG TAB PO PRN ×3 (04:31→21:22)
[2016-12-01 05:46] VITALS: BP 97/57; PULSE 75; RESP 18; TEMP 97.2; O2SAT 97
[2016-12-01] MEDS: NICOTINE 21 MG/24 HR PATCH T-DERMAL SCH (08:41)
[2016-12-01] MEDS: FOLIC ACID 1 MG TAB PO SCH (09:00)
[2016-12-01] MEDS: THIAMINE HCL 100 MG TAB PO SCH (09:00)
[2016-12-01] MEDS: ARIPiprazole 15 MG TAB PO SCH (09:00)
--- NOTE | 2016-12-01 13:16 | HHI.PYPN ---
Subjective Remarks Patient was seen and case discussed with nursing. Per nursing, patient is perseverant and is seeking Ativan. Patient is less bizarre compared to yesterday. Answers "maybe" when asked about his delusions spying and harvesting organs. Flat affect, poor eye contact, apathetic Objective Alert: Yes [place]: Person, Place Mood: Oppositional Affect: Flat Memory Intact: Comment (Not assessed) Hallucinations: Auditory (remains int stim) Delusions: Yes Delusion Type: Paranoid (various paranoid delusions) Suicidal: Ideation (No SI) Homicidal: Ideation (No HI) Insight/Judgment Poor Vitals/IOs Vital Signs Date Time Temp Pulse Resp B/P Pulse Ox O2 Delivery O2 Flow Rate FiO2 12/01/16 05:46 97.2 75 18 97/57 97 Assessment & Plan Problem List: (1) Schizoaffective disorder ICD Code: F25.9 Assessment & Plan Lower when necessary Ativan to every 12 hours Justification for Cont. Inpt. Patient would decompensate in a less restrictive setting Request HC Surrog/Guard Advoc?: No Problem Qualifiers (1) Schizoaffective disorder: Qualified Code: F25.8 - Other schizoaffective disorders Andrew Hernadez DO Dec 01, 2016 13:16
[2016-12-01] MEDS: REMOVE OLD NICODERM (NICOTINE) PATCH T-DERMAL SCH (21:00)
[2016-12-01] MEDS: diphenhydrAMINE HCL 50 MG CAP PO PRN ×2 (21:03→21:22)
[2016-12-01 22:19] VITALS: BP 112/58; PULSE 71; RESP 18; TEMP 98.5; O2SAT 99
[2016-12-02] MEDS: ARIPiprazole 15 MG TAB PO SCH (09:00)
[2016-12-02] MEDS: NICOTINE 21 MG/24 HR PATCH T-DERMAL SCH (09:00)
[2016-12-02] MEDS: LORazepam 1 MG TAB PO PRN (09:03)
[2016-12-02] MEDS: FOLIC ACID 1 MG TAB PO SCH (09:03)
[2016-12-02] MEDS: THIAMINE HCL 100 MG TAB PO SCH (09:03)
[2016-12-02] MEDS: diphenhydrAMINE HCL 2%/ZINC ACETATE 0.1% CREAM 30 APPLIC/30 GM TUBE TOPICAL PRN (11:08)
[2016-12-02] MEDS ORDERED: ABIL30TA2 PO (11:58)
--- NOTE | 2016-12-02 11:59 | HHI.DS ---
Psychiatry Discharge Summary Inpatient Psychiatric care?: Yes Advance Directive: No Reason Not Provided: Due to Patient Condition Mental Health AdvanceDirective: No Health Care Proxy: No Admission Admission Date Nov 25, 2016 at 14:43 Admission Diagnosis: (1) Schizoaffective disorder ICD Code: F25.9 Brief History Patient is an [id number] male presenting as a Rohith Tompkins under a [place]bert Act, gives his name as Ion Jameson 62. Reviewing the notes, it appears that he was quite agitated on initial presentation and was medicated with Zyprexa 10 mg IM in the ED. Reviewing the electronic medical record for Mr. Jameson, it appears the patient was admitted about a year ago under Dr. Russell for a short stay for what turned out to be an alcohol-induced disorder at that time, although Dr. Russell's last note does give a diagnosis of schizoaffective disorder. I have placed a call over to [facility] and spoken with medical records there. Patient was apparently treated at the end of October of this year at [facility] and the diagnosis at that time was schizoaffective disorder. Medical records is faxing me the full report for review. Patient seen and examined with counselor and nurse. Patient seems much more lucid today than he apparently was yesterday. He complains of pain in his jaw, neck and back related to being detained by the police. 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 He is not a terribly forthcoming historian. He does report "everyday things make me anxious." He denies AVH. When asked if he feels like people are working against him, he replies, "I'm sure they do." No other gia delusional material. Denies SI/HI at this time. Affect somewhat restricted and dysphoric. No hypomanic/manic symptoms noted. Demanding and irritable per RN. Remainder of the psychiatric ROS is negative. Past psychiatric history: Patient denies a history of psychiatric diagnosis although he does note that he has been treated at [facility] in the past. He reports that his most recent psychiatric admission was here at [facility]. He denies any history of suicide attempts. Family history: Patient replies that he "probably" has a family history of mental illness. Chemical dependency history: Patient reports that he has significantly curtailed his alcohol consumption although he declines to quantify exactly how much or overwhelmed. He has cut back. He denies any other substance use. His alcohol level was undetectable on presentation here and he declined to provide a urine sample for urine toxicology. Social history: The patient reports that he is trying to get back to [facility] where he plans to stay with a friend named Zhen. He is single with no children. He is college educated reportedly. He does not work and collects disability but says that was his payee and has been holding his checks. Denies any history of violent crime. Denies any active legal issues. Denies any history. Denies any access to guns or firearms. Tobacco Use In Past 30 Days: No Tobacco Past 30 Days Alcohol Use: Never Hospital Course Patient was admitted to a locked, inpatient psychiatric unit. Appropriate precautions were in place throughout patient's hospital stay. Patient was seen and examined daily on the unit by psychiatry and also visited by counselor. Psychotropic medications were adjusted. Patient tolerated psychotropics well without side effects. Patient had improvement in presenting psychiatric symptomatology during the course of his hospital stay. He did continue to articulate some paranoid delusional material, although this lessened during the course of his hospital stay. There was no evidence of any suicidality or homicidality. The patient was medication compliant. Charting indicates that the patient has been sleeping and eating well. On the day of discharge: Patient seen and examined with counselor and nurse. Chart reviewed. Case discussed with nursing staff. No significant behavioral issues noted. On my examination today, the patient is requesting discharge from the inpatient psychiatric unit. He denies any suicidal or homicidal ideation, intent or plan on direct questioning. He contracts for safety. Mood is good and I can elicit no depressive or hypomanic/manic symptoms. He denies any audiovisual hallucinations, and I can elicit no delusional material. In particular he disavows the delusional material articulated to Dr. Hernadez over the weekend. Patient denies side effects from medications. I have recommended that he accept Abilify Maintena prior to discharge to improve adherence, but he has declined. He is willing to accept a titration of his Abilify to 30mg daily on discharge. No physical complaints. Weighing the acute, chronic, and protective factors and based on the available evidence, I cardiovascular radiologic technologist to a reasonable degree of medical certainty that the patient is at low imminent risk of harm to self or others from a mental illness as defined under the Hebert act and his level of function is adequate for outpatient care. The patient does not presently meet criteria for ongoing involuntary psychiatric hospitalization. I have strongly recommended however that he remain on the unit voluntarily for additional stabilization. He has declined, and given that I have no basis to retain the patient involuntarily at this time, I must order his discharge today with psychiatric follow-up as arranged by counselor. Patient is also to follow- up with primary care. I've counseled the patient to return to the psychiatric emergency room for any concerning psychiatric symptoms as part of a general safety plan. Results Blood Pressure 112 / 58 Vital Signs Date Time Temp Pulse Resp B/P Pulse Ox O2 Delivery O2 Flow Rate FiO2 12/01/16 22:19 98.5 71 18 112/58 99 Item Value Date Time White Blood Count 6.8 TH/MM3 11/25/16 1030 Hemoglobin 13.6 GM/DL 11/25/16 1030 Platelet Count 193 TH/MM3 11/25/16 1030 Sodium Level 143 MEQ/L 11/25/16 1030 Potassium Level 4.1 MEQ/L 11/25/16 1030 Chloride Level 107 MEQ/L 11/25/16 1030 Carbon Dioxide Level 27.4 MEQ/L 11/25/16 1030 Blood Urea Nitrogen 21 MG/DL H 11/25/16 1030 Creatinine 1.02 MG/DL 11/25/16 1030 Aspartate Amino Transf (AST/SGOT) 19 U/L 11/25/16 1030 Alanine Aminotransferase (ALT/SGPT) 28 U/L 11/25/16 1030 Alkaline Phosphatase 69 U/L 11/25/16 1030 Ethyl Alcohol Level LESS THAN 3 MG/DL 11/25/16 1030 Summary of Procedures None done Imaging None done Pending results at discharge: No Medications # of Antipsychotic meds at D/C: 1 Approp Antipsych med options 1 - Minimum of three failed multiple trials of monotherapy. 2 - Documented plan to taper to monotherapy due to previous use of multiple meds OR cross-taper in progress at D/C. 3 - Documentation of augmentation of Clozapine. 4 - Justification other than those listed in allowable values 1-3, document here : Discharge Discharge Date: Dec 02, 2016 Discharge Diagnosis: (1) Schizoaffective disorder Diagnosis: Principal (improved versus admission) ICD Code: F25.9 Mental Status Exam at Disch Patient is casually dressed. He is well groomed. He is awake and alert and oriented to person and hospital at least. No abnormal motor movements noted. Speech is within normal limits for rate, tone and volume. Language and fund of knowledge average. Focus and concentration intact. Memory grossly intact on clinical exam. Mood good and affect blunted. Thought process linear. No loosening of associations. No delusions elicited, although I do suspect some underlying paranoia ongoing. Denies audiovisual hallucinations. Denies suicidal or homicidal ideation, intent or plan and contracts for safety. Insight and judgment likely poor. Pt Condition on Discharge: Stable Discharge Disposition: Discharge Home Discharge Instructions Diet Instructions: As Tolerated, No Restrictions Activities you can perform: Weight Bearing as Bebe Scheduled Appointment: as per counselor's notes New Medications: Aripiprazole (Abilify) 30 Mg Tab 30 MG PO DAILY Mental Health Days 15 Ref 1 TAB Discharge Time <= 30 minutes Discharge/Advance Care Plan Health Problems: (1) Schizoaffective disorder Goals to promote your health * To prevent worsening of your condition and complications * To maintain your health at the optimal level Directions to meet your goals Take your medications as prescribed Follow your dietary instruction Follow activity as directed Keep your appointments as scheduled Take your immunizations and boosters as scheduled If your symptoms worsen call your PCP, if no PCP go to Urgent Care Center or Emergency Room For 02/12 questions related to your inpatient stay or results of tests pending at discharge, please contact Dr. Ion Chow at Smoking is Dangerous to Your Health. Avoid second hand smoking Problem Qualifiers (1) Schizoaffective disorder: Qualified Code: F25.8 - Other schizoaffective disorders Ion Chow MD Dec 02, 2016 11:59
== END 2016-12-02 13:50 | disposition home or self-care (01) | DRG 885 ==
LOC: NEPC 09:59 → NEDA 14:43 → EDBD 14:43 → H270 17:54
PROVIDERS: ADMIT Psychiatry & Neurology Psychiatry; ATTEND Psychiatry & Neurology Psychiatry
DX: F25.8 Other schizoaffective disorders (principal); L08.0 Pyoderma; M54.2 Cervicalgia; Z81.8 Family history of other mental and behavioral disorders
CPT/HCPCS: 80053; 80307; 85025; J0461; J2060; Q0163

== ENCOUNTER 2016-12-05 23:36 | Emergency (ER) | payer MEDICARE ==
[~2016-12-05] VITALS: Ht 177.8 cm; Wt 75.0 kg
[~2016-12-05 23:36] MED LIST: ABIL30TA2 PO
[2016-12-05 23:39] VITALS: BP 145/85; PULSE 84; RESP 15; TEMP 98.7; O2SAT 98
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
[2016-12-06] MEDS ORDERED: IBUPROFEN 800 MG TAB PO ONE (01:30)
== END 2016-12-06 02:03 | disposition home or self-care (01) ==
LOC: NEPK 23:36
DX: S20.219A Contusion of unspecified front wall of thorax, initial encounter (principal); M50.30 Other cervical disc degeneration, unspecified cervical region; Y04.2XXA Assault by strike against or bumped into by another person, initial encounter
CPT/HCPCS: 71010; 72050; 99284